=== PATIENT | male | born 1990 | race Two or more races ===

== ENCOUNTER 2024-07-24 16:20 | Emergency (ER) | payer MEDICAID, SELFPAY ==
[2024-07-24 16:27] VITALS: BP 123/62; PULSE 116; RESP 20; TEMP 36.9; O2SAT 97
--- NOTE | 2024-07-24 16:44 | PD.EDRME ---
Rapid Medical Screening Exam RME Arrival date/time: 07/24/24 16:20 34-year-old male presents to the emergency department for complaints of rectal bleeding patient believes he has been poisoned Chief Complaint: GI Bleed Vital signs: Vital Signs Temperature 98.4 F 07/24/24 16:27 Pulse Rate 116 H 07/24/24 16:27 Respiratory Rate 20 07/24/24 16:27 Blood Pressure 123/62 07/24/24 16:27 Pulse Oximetry (%) 97 07/24/24 16:27 Oxygen Delivery Method Room Air 07/24/24 16:27
--- NOTE | 2024-07-24 17:45 | PC.NURSE ---
per phlebo, pt refused labs at 1745.
--- NOTE | 2024-07-24 18:05 | PC.NURSE ---
pt is refusing any treatment at this time. pt states that he needs to speak to an officer first to file a report. informed pt that waiting for an officer will delay his treatment. pt states that he does not want anything done till he speaks to an officer. pt states that he believes someone is trying to poison him and that is why he is having the rectal bleeding.
--- NOTE | 2024-07-24 18:12 | PC.NURSE ---
called and spoke with [place] police dispatch to inform them that pt is stating that he believes someone is trying to poison him. pt wants an officer to come out and take report before he will allow us to run any test or treatment. per dispatch they will send someone out when available
--- NOTE | 2024-07-24 20:18 | PD.EDABDPN ---
ED Abdominal Pain RME/HPI General Chief Complaint: GI Bleed Stated complaint: RECTAL BLEEDING Time seen by provider: 07/24/24 18:13 Arrival date/time: 07/24/24 16:20 RME / HPI RME / HPI narrative: 07/24/24 16:20 34-year-old male presents to the emergency department for complaints of rectal bleeding patient believes he has been poisoned This section includes all my notes and documentations, including HPI, PE, and ED course. Samuel Cordoba MD HPI: 34-year-old male here concerned that he was poisoned. He has difficulty describing when it happened or how it happened. And he has difficulty describing his symptoms. He denies abdominal pain. No hematemesis or coffee-ground emesis. No rectal bleeding or tarry stools. No other complaints. ROS: All negative except as documented in HPI. Physical Exam: General: Alert and oriented. Eyes: Conjunctivae and lids clear. EOMI. PERRL. ENT: No nasal congestion. Neck: Supple. Heart: RRR. Lungs: No respiratory distress. Good air movement. No rhonchi, wheezing, rales. Abdomen: Soft and nontender. Normal bowel sounds. No distension. No rebound or guarding. Legs: No clubbing, cyanosis, edema. Skin: Warm and dry. Neuro: Alert and oriented X 3. Cranial Nerves II-XII grossly intact. No peripheral motor deficits. Diagnostics tests ordered, including blood test and imaging studies. Patient declined. Discussed potential risks, including missing serious conditions. Patient still declined. We couldn't change his mind. Based on my best medical judgment, we discharge the patient. Patient understands and agrees to the discharge instructions customized and printed, see below. Discharge Instructions from Dr. Cordoba printed for you: 1. Because you declined all diagnostic tests, including blood test and imaging studies, we couldn't help you. 2. See a private doctor on 07/26/2024. Ask for help keeping you safe and healthy, both physically and mentally. 3. Seek immediate medical care with any concerns. You can call 911 anytime with any concerns. Samuel Cordoba MD Related Data Allergies Allergy/AdvReac Type Severity Reaction Status Date / Time No Known Allergies Allergy Verified 07/24/24 16:23 Course Quality Measures none Orders Category Date Time Status Insert IV NOW Care 07/24/24 16:[address] abdomen pelvis w con Stat Exams 07/24/24 16:42 Stop Req Vital Signs Vital signs: Vital Signs Temperature 98.4 F 07/24/24 16:27 Pulse Rate 116 H 07/24/24 16:27 Respiratory Rate 20 07/24/24 16:27 Blood Pressure 123/62 07/24/24 16:27 Pulse Oximetry (%) 97 07/24/24 16:27 Oxygen Delivery Method Room Air 07/24/24 16:27 Abdominal Pain MDM Patient data External records reviewed:: None Clinical information provided by:: patient Social determinants that could affect healthcare access:: none Patient has the following chronic illnesses:: Patient denies chronic illnesses. How is presenting disease/condition affected by chronic disease/condition?: no chronic disease Evaluation data The following diagnostics were reviewed and interpreted by me:: other (specify) (Patient declined all diagnostic tests.) Lab and/or radiology exams considered but not ordered:: None Interpretation Summary: Patient declined all diagnostic tests. Medications / Prescriptions Medications or Prescriptions considered but not ordered:: None Medication administrations:: Patient declined all diagnostic tests and treatments. Consultations Consultation(s) initiated? (list below): No Diagnosis Differential diagnosis abdominal pain: other (Psychogenic) Most likely diagnosis given after review of the tests above:: Anxiety Admission Indicated Admission indicated?: not indicated Explain why admission is indicated or not indicated:: Patient declined all diagnostic tests. Admission Request Was there a request for admission?: No Disposition Plan Disposition Plan: Discharge Discharge Attestation Discharge Attestation: The patient and all family members were given an opportunity to ask questions and understood the discharge instructions. Discharge instructions specifically effects, indications for sooner follow up or return to the emergency department, and the expected course of current diagnosis. Patient condition: Stable Discharge Plan Plan Patient Disposition: HOME (Self Care) Prescriptions/Referrals Referrals: No Primary/Family,Physician [Primary Care Provider] - In 1 week Problem List Clinical Impression: Anxiety Patient/Caregiver Discharge Instructions Discharge Activity: activity as tolerated Education Materials: ED Anxiety Reaction Additional Instructions: Discharge Instructions from Dr. Cordoba printed for you: 1. Because you declined all diagnostic tests, including blood test and imaging studies, we couldn't help you. 2. See a private doctor on 07/26/2024. Ask for help keeping you safe and healthy, both physically and mentally. 3. Seek immediate medical care with any concerns. You can call 911 anytime with any concerns. Print Language: [place]raini Stand Alone Forms: Maggie Award Info., Patient Portal Info Letter
--- NOTE | 2024-07-24 20:21 | PC.NURSE ---
NO ANSWER FOR DC
--- NOTE | 2024-07-24 20:31 | PC.NURSE ---
Seen Pt walking out.
--- NOTE | 2024-07-24 20:39 | PC.NURSE ---
PT REFUSED ALL LABS AND WORK UP BY PROVIDERS.
== END 2024-07-24 20:41 | disposition home or self-care (01) ==
PROVIDERS: Emergency Provider Emergency Medicine
DX: F41.9 Anxiety disorder, unspecified (principal); K62.5 Hemorrhage of anus and rectum
CPT/HCPCS: 80053; 80307; 80320; 83690; 85025; 85610; 85730; 99281; G0480